=== PATIENT | female | born 1965 | race Caucasian/White ===

== ENCOUNTER 2021-10-12 13:42 | Outpatient (CLI) | payer OTHER, SELFPAY ==
--- NOTE | 2021-10-12 13:50 | MM_ITS ---
WS: [id number] BILATERAL 3D TOMOSYNTHESIS DIGITAL SCREENING MAMMOGRAPHY WITH CAD CLINICAL INFORMATION: SCREENING HISTORY: Screening mammogram. No current complaints. History of bilateral breast reduction. COMPARISON: TECHNIQUE: Bilateral CC and MLO views. FINDINGS: Scattered fibroglandular densities bilaterally. Dystrophic calcifications upper outer LEFT breast lik connie due to prior breast reduction.. 12 mm hazy spiculated asymmetry posterior depth LEFT breast best seen on the MLO view. Recommend spot compression views and ultrasound if persistent. RIGHT breast is unremarkable. MM/[place] [id number] IMPRESSION: BI-RADS: 0-Incomplete: Need additional imaging evaluation FOLLOW UP: Need Additional Imaging Recommend LEFT breast diagnostic mammography and ultrasound in further evaluati on.
== END 2021-10-12 13:43 | disposition home or self-care (01) ==
LOC: RAD 13:44
PROVIDERS: PCP Internal Medicine; Visit Provider Family Medicine
DX: Z12.31 Encounter for screening mammogram for malignant neoplasm of breast (principal)
CPT/HCPCS: 77063; 77067

== ENCOUNTER 2021-10-26 13:53 | Outpatient (CLI) | payer OTHER, SELFPAY ==
--- NOTE | 2021-10-26 13:59 | MM_ITS ---
WS: [id number] LEFT 3D TOMOSYNTHESIS DIGITAL MAMMOGRAPHY WITH CAD CLINICAL INFORMATION: SPICULATED ASYMMETRY COMPARISON: October 12, 2021 and December 20, 2014 TECHNIQUE: 3 views of the left breast were obtained. FINDINGS: Scattered fibroglandular densities of the left breast. Dystrophic calcifications upper outer LEFT kourtney ast. Spiculated asymmetry partially compresses out on the spot compression views. This may be related to prior breast reduction. Ultrasound described below. ULTRASOUND BREAST LEFT TECHNIQUE: Ultrasound left breast focused area of concern. CLINICAL INFORMATION: SPICULATED ASYMMETRY COMPARISON: None. FINDINGS: Ultrasound LEFT breast at the 12 to 3:00 position. Normal underlying parenchymal tissue. No cystic or solid lesions. Calcifications are visualized. No suspicious lesions to target for biopsy. MM/[place] [id number] BI-RADS: 3-Probably Benign FOLLOW UP: 6 Month Follow-up Recommend 6 month LEFT breast diagnostic mammography and ultrasound to confirm stability.
--- NOTE | 2021-10-26 15:12 | US_ITS ---
WS: [id number] LEFT 3D TOMOSYNTHESIS DIGITAL MAMMOGRAPHY WITH CAD CLINICAL INFORMATION: SPICULATED ASYMMETRY COMPARISON: October 12, 2021 and December 20, 2014 TECHNIQUE: 3 views of the left breast were obtained. FINDINGS: Scattered fibroglandular densities of the left breast. Dystrophic calcifications upper outer LEFT kourtney ast. Spiculated asymmetry partially compresses out on the spot compression views. This may be related to prior breast reduction. Ultrasound described below. ULTRASOUND BREAST LEFT TECHNIQUE: Ultrasound left breast focused area of concern. CLINICAL INFORMATION: SPICULATED ASYMMETRY COMPARISON: None. FINDINGS: Ultrasound LEFT breast at the 12 to 3:00 position. Normal underlying parenchymal tissue. No cystic or solid lesions. Calcifications are visualized. No suspicious lesions to target for biopsy. US/US breast LT limited* [id number] BI-RADS: 3-Probably Benign FOLLOW UP: 6 Month Follow-up Recommend 6 month LEFT breast diagnostic mammography and ultrasound to confirm stability.
== END 2021-10-26 13:54 | disposition home or self-care (01) ==
PROVIDERS: PCP Internal Medicine; Visit Provider Family Medicine
DX: N64.89 Other specified disorders of breast (principal)
CPT/HCPCS: 76642; 77061

== ENCOUNTER 2022-05-04 10:54 | Outpatient (CLI) | payer OTHER, SELFPAY ==
--- NOTE | 2022-05-04 11:46 | MM_ITS ---
WS: [id number] LEFT 3D TOMOSYNTHESIS DIGITAL MAMMOGRAPHY WITH CAD CLINICAL INFORMATION: 6MFU HISTORY: Six-month follow-up COMPARISON: October 26, 2021 TECHNIQUE: 3 views of the left breast were obtained. FINDINGS: Scattered fibroglandular densities of the left breast. Dystrophic calcifications upper outer LEFT kourtney ast with parenchymal fibrosis is unchanged in appearance but could be related to prior breast reducti on. This is unchanged from previous. No other suspicious findings. MM/[place] [id number] IMPRESSION: BI-RADS: 2-Benign FOLLOW UP: 1 Year Follow-up Recommend return to annual screening mammography.
== END 2022-05-04 10:55 | disposition home or self-care (01) ==
PROVIDERS: PCP Internal Medicine; Visit Provider Internal Medicine
DX: R92.1 Mammographic calcification found on diagnostic imaging of breast (principal)
CPT/HCPCS: 77061; G0279